=== PATIENT | female | born 1960 | race Caucasian/White ===

== ENCOUNTER 2016-08-21 11:46 | Day surgery (SDC) | payer OTHER ==
[~2016-08-21] VITALS: Ht 160 cm; Wt 108.9 kg
[~2016-08-21 11:46] MED LIST: ARIP10TA13 PO; ASPI-535 PO; CITA-104 PO; GABA300C16 PO; GLIP5TAB13 PO; IBUP800T25 PO; INSU100C; INSU100C5; NAPR-260 PO; SIMV20TA2 PO
[2016-08-21 12:27] VITALS: Ht 160 cm; Wt 108.9 kg
[2016-08-21] MEDS ORDERED: PROPOFOL 20 ML ONE (14:15)
[2016-08-21 14:24] VITALS: BP 163/82; PULSE 79; RESP 24
--- NOTE | 2016-08-21 15:05 | GILP ---
DATE OF PROCEDURE: 08/21/2016 NAME OF PROCEDURE: Esophagogastroduodenoscopy with biopsies. SURGEON: Luis Ann MD. HISTORY AND INDICATIONS: The patient is being evaluated for dyspepsia. PREMEDICATION: Monitored anesthesia care by anesthesiologist. INSTRUMENT USED: Olympus pérez endoscope. TECHNIQUE: After informed consent, with the patient/relatives understanding the procedure, its indic ations, potential risks and complications, including but not limited to: allergic reaction, bleeding , perforation or infection, and after all pertinent questions were answered to the patients satisfac tion, the patient/relatives signed witnessed informed consent. Following this, premedication was administered slowly IV push under careful cardiovascular and respi ratory monitoring with pulse oximetry, automatic blood pressure and ekg monitor tech. Once the sedative effect was achieved the patient was place in the left lateral decubitus, the panen doscope was introduced and advanced under visual control. Careful examination of the upper gastrointestinal tract, both on insertion as well as withdrawal of the instrument disclosed the following findings: ESOPHAGUS: The distal esophagus shows erythema and edema of the mucosa of a moderate degree. There is "____" in the mid esophagus. Biopsies were obtained to rule out eosinophilic esophagitis. STOMACH: Upon entrance to the stomach air was insufflated, the gastric holt distended normally. The re was erythema and edema in the mucosa of a moderate degree. Biopsies were obtained to rule out H. pylori infection. PYLORUS: The pylorus appears patent and within normal limits, with no evidence of gastric outlet obs truction. DUODENUM: The duodenal mucosa was carefully examined in the duodenal bulb as well as the second port ion of the duodenum and appears unremarkable with no evidence of duodenitis, ulcer or neoplasm. The instrument was then withdrawn, the patient tolerated the procedure well and was transfer out of the endoscopy suite awake, and in good condition to continue recovery under observation IMPRESSION: 1. Distal esophagitis. 2. Rule out eosinophilic esophagitis, biopsies obtained. 3. Gastritis. Rule out Helicobacter pylori infection. Biopsies obtained. PLAN: The patient will be treated with PPIs. Pathology will be reviewed as soon as available. Furt her recommendations will depend upon the patient's clinical course as well as review of biopsies. Dictated By: LUIS ANN MS/ARIELLE Conf#: [id number] DID#: [id number] CC: LUIS ANN;*End*
[2016-08-21 15:13] VITALS: BP 151/91; RESP 20
--- NOTE | 2016-08-21 15:17 | GILP ---
DATE OF PROCEDURE: 08/21/2016 PROCEDURE: Colonoscopy with polyp ablation. SURGEON: Yonas Ann MD BRIEF HISTORY AND INDICATIONS: The patient is being evaluated for colonoscopy. INSTRUMENT USED: Olympus colonoscope. PREPARATION: Adequate. TECHNIQUE: After informed consent, with the patient/relatives understanding the procedure, its indic ations potential risks and complications, including but not limited to: allergic reaction, bleeding, perforation, infection, missed lesions and after all pertinent questions were answered to the patie nt's satisfaction, the patient/relatives signed the witnessed informed consent. Following this, pre medication was administered slowly IV push by under careful cardiovascular and respiratory monitorin g with pulse oximetry, automatic blood pressure and tube operator. Once the sedative effect was achiev ed, the patient was placed in the left lateral decubitus position, digital rectal examination was pe rformed. The colonoscope was then introduced and advanced under visual control throughout all segmen ts of the colon including: the rectum, sigmoid, descending colon, splenic flexure, transverse colon, hepatic flexure, ascending colon and finally reaching the cecum which was clearly identified by tra nsillumination, finger indentation and the ileocecal valve. Careful examination of the mucosa of the lower gastrointestinal tract both on insertion as well as withdrawal of the instrument disclosed th e following findings: Rectal Examination: No evidence of perirectal disease, no masses. Colonic Mucosa: The colonic mucosa is unremarkable with the exception of a questionable 4 mm polyp in the descending colon which was ablated with biopsy forceps. The remainder of colonic mucosa unre markable. The ileocecal valve was clearly identified. The instrument was withdrawn reexamining the mucosa in detail. No additional abnormalities are noted with the exception of moderate-sized inter nal hemorrhoids. The instrument was then withdrawn, the patient tolerated the procedure well and was transferred out of the endoscopy suite awake and in good condition to continue recovery under observation. IMPRESSION: 1. Questionable 4 mm polyp in the descending colon, ablated. 2. Moderate-sized internal hemorrhoids. PLAN: The patient will be followed up as an outpatient. Pathology will be reviewed as soon as ye caro. If the polyp is adenomatous, surveillance colonoscopy in 5 years is recommended. Alternativ janene, if not adenomatous polyp is found, screening colonoscopy in 10 years is recommended. Dictated By: YONAS ANN MS/ARIELLE Conf#: [id number] DID#: [id number] CC: YONAS ANN;*[facility]*
== END 2016-08-21 16:19 | disposition home or self-care (01) ==
LOC: GIL 11:46
PROVIDERS: ATTEND Internal Medicine Gastroenterology
DX: Z12.11 Encounter for screening for malignant neoplasm of colon (principal); D12.4 Benign neoplasm of descending colon; K20.8 Other esophagitis; K29.70 Gastritis, unspecified, without bleeding; K64.8 Other hemorrhoids; E11.9 Type 2 diabetes mellitus without complications; I10 Essential (primary) hypertension; E66.01 Morbid (severe) obesity due to excess calories; Z68.42 Body mass index [BMI] 45.0-49.9, adult
CPT/HCPCS: 43239; 45380; 82962; 88305; 88312; 88313; Z7610